=== PATIENT | female | born 2005 | race Caucasian/White ===

== ENCOUNTER → 2024-07-12 | Outpatient (CLI) | payer OTHER ==
--- NOTE | 2024-07-12 09:34 | MR ---
EXAMINATION TYPE: MR brain wo con DATE OF EXAM: 07/12/2024 COMPARISON: NONE HISTORY: Hx of Migraines x8 years TECHNIQUE: T1-weighted sagittal, T2, FLAIR, and diffusion axial, and T2 coronal coronal views of the brain are submitted. FINDINGS: There is no evidence of acute ischemia. The ventricles, basal cisterns, and sulci overlying the conv exities are consistent with the patient's age. There is no mass effect. Craniocervical junction maintained. Sella turcica has a normal appearance. Orbits are symmetric. Mild changes of chronic sinusitis. IMPRESSION: 1. No acute intracranial process extending to mild chronic sinusitis. [facility], , 07/12/2024 9:32 AM
== END | disposition home or self-care (01) ==
LOC: RADMRIMAIN 08:13
PROVIDERS: ATTEND Family Medicine
DX: G43.009 Migraine without aura, not intractable, without status migrainosus (principal)
CPT/HCPCS: 70551